=== PATIENT | female | born 1995 | race Caucasian/White ===

== ENCOUNTER 2020-05-28 20:34 | Emergency (ER) | payer OTHER ==
[~2020-05-28] VITALS: Ht 157.5 cm; Wt 125.2 kg
[2020-05-28 20:50] VITALS: BP 141/82
--- NOTE | 2020-05-28 20:55 | NUR ---
pt ambualted to bed 9. ua provided and in utility room.
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
--- NOTE | 2020-05-28 21:10 | NUR ---
Dr. Mcdonald examining patient.
[2020-05-28 21:35] VITALS: BP 124/80
--- NOTE | 2020-05-28 21:35 | NUR ---
Patient discharged with v/s stable. Written and verbal after care instructions given and explained. Patient verbalized understanding. Ambulatory with steady gait. All questions addressed prior to discharge. Advised to follow up with PMD.
== END 2020-05-28 21:35 | disposition home or self-care (01) ==
LOC: MED 20:34
DX: T78.1XXA Other adverse food reactions, not elsewhere classified, initial encounter (principal); I10 Essential (primary) hypertension; X58.XXXA Exposure to other specified factors, initial encounter
CPT/HCPCS: 81002; 81025; 99283; Q0163

== ENCOUNTER 2020-06-15 16:47 | Emergency (ER) | payer OTHER ==
[~2020-06-15] VITALS: Ht 162.6 cm; Wt 103.6 kg
[2020-06-15 16:59] VITALS: BP 130/94
--- NOTE | 2020-06-15 17:10 | NUR ---
PT AMBULATED TO ROOM 7.
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
--- NOTE | 2020-06-15 17:18 | NUR ---
DR ROSADO AT BEDSIDE EVALUATING PT.
--- NOTE | 2020-06-15 17:23 | NUR ---
SAIDA GRANT AT BEDSIDE DOIN EKG.
--- NOTE | 2020-06-15 17:34 | NUR ---
XRAY AT BEDSIDE.
--- NOTE | 2020-06-15 18:23 | NUR ---
DR ROSADO AT BEDSIDE REEVALUATING PT.
[2020-06-15] MEDS ORDERED: LORazepam 0.5 MG TAB PO ONE (18:35)
--- NOTE | 2020-06-15 18:39 | NUR ---
excuse from work given.
[2020-06-15 18:41] VITALS: BP 130/94
--- NOTE | 2020-06-15 18:42 | NUR ---
Patient discharged with v/s stable. Written and verbal after care instructions given and explained regarding costochondritis, anxiety and panic attack. Patient alert, oriented and verbalized understanding of instructions. Ambulatory with steady gait. All questions addressed prior to discharge. ID band removed. Patient advised to follow up with PMD. Rx of ativan and motrin given. Patient educated on indication of medication including possible reaction and side effects. Opportunity to ask questions provided and answered.
== END 2020-06-15 18:42 | disposition home or self-care (01) ==
LOC: MED 16:47
DX: M94.0 Chondrocostal junction syndrome [Tietze] (principal); F41.9 Anxiety disorder, unspecified; R03.0 Elevated blood-pressure reading, without diagnosis of hypertension; Z98.890 Other specified postprocedural states
CPT/HCPCS: 71045; 81002; 81025; 93005; 99283; Q0092

== ENCOUNTER 2020-12-07 14:01 | Emergency (ER) | payer OTHER ==
[~2020-12-07] VITALS: Ht 162.6 cm; Wt 105.7 kg
[2020-12-07 14:12] VITALS: BP 121/65
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
--- NOTE | 2020-12-07 14:42 | NUR ---
LAB AT BEDSIDE
[2020-12-07 14:49] LABS: BASOPHILS % (AUTO) 0.7 % (0.0-2.0); EOSINOPHILS # (AUTO) 0.1 K/uL (0-0.4); HEMATOCRIT 35.7 % (36-48); HEMOGLOBIN 12.1 g/dL (12.0-16.0); LYMPHOCYTES # (AUTO) 1.6 K/uL (2.5-16.5); LYMPHOCYTES % (AUTO) 36.8 % (20.5-51.1); MEAN CORPUSCULAR HEMOGLOBIN 31 pg (27-31); MEAN CORPUSCULAR HGB CONC 34 g/dL (33-37); MEAN CORPUSCULAR VOLUME 91.2 fL (80-94); MONOCYTES # (AUTO) 0.3 K/uL (0.8-1.0); MONOCYTES % (AUTO) 6.1 % (1.7-9.3); NEUTROPHILS # (AUTO) 2.4 K/uL (1.8-7.7); NEUTROPHILS % (AUTO) 54.4 % (42.2-75.2); PLATELET COUNT (AUTO) 272 K/uL (140-450); RED BLOOD CELL COUNT(AUTO) 3.91 MIL/uL (4.20-5.40); RED CELL DISTRIBUTION WIDTH 13.6 % (11.6-13.7); WHITE BLOOD COUNT (AUTO) 4.5 K/uL (4.8-10.8)
[2020-12-07 14:57] LABS: ANION GAP 11.1 (8-16); CARBON DIOXIDE 26.3 mmol/L (21-32); CREATININE 0.7 mg/dL (0.6-1.3); POTASSIUM 4.4 mmol/L (3.5-5.1)
--- NOTE | 2020-12-07 15:14 | NUR ---
Female Seat Cover Cutter accompanied female patient for Pelvic Exam.
--- NOTE | 2020-12-07 15:40 | NUR ---
US AT BEDSIDE
[2020-12-07] MEDS ORDERED: KETOROLAC 30 MG/ML VIAL IM ONE (16:30)
--- NOTE | 2020-12-07 16:59 | NUR ---
WINSTON Good is reevaluating the patient at bedside.
[2020-12-07] MEDS ORDERED: IBUP-2213 PO (17:05)
[2020-12-07 17:11] VITALS: BP 123/62
== END 2020-12-07 17:11 | disposition home or self-care (01) ==
LOC: MED 14:01
DX: N83.292 Other ovarian cyst, left side (principal); N83.291 Other ovarian cyst, right side; D25.9 Leiomyoma of uterus, unspecified; Z79.899 Other long term (current) drug therapy
CPT/HCPCS: 36415; 76830; 80048; 81002; 81025; 84702; 85025; 96372; 99284; J1885

== ENCOUNTER 2021-03-16 09:02 | Emergency (ER) | payer OTHER ==
[~2021-03-16] VITALS: Ht 162.6 cm; Wt 95.3 kg
[~2021-03-16 09:02] MED LIST: IBUP-2213 PO
[2021-03-16 09:09] VITALS: BP 107/58
[2021-03-16] MEDS ORDERED: NAPR-54 PO (09:44)
[2021-03-16] MEDS ORDERED: LOSA25TA32 PO (09:45)
[2021-03-16 10:42] VITALS: BP 112/62
== END 2021-03-16 10:42 | disposition home or self-care (01) ==
LOC: MED 09:02
DX: B34.9 Viral infection, unspecified (principal); I10 Essential (primary) hypertension; Z76.0 Encounter for issue of repeat prescription; Z20.822 Contact with and (suspected) exposure to COVID-19; Z79.899 Other long term (current) drug therapy; Z98.890 Other specified postprocedural states
CPT/HCPCS: 99283

== ENCOUNTER 2021-06-02 18:19 | Emergency (ER) | payer OTHER ==
[~2021-06-02 18:19] MED LIST changes: +LOSA25TA32 PO; +NAPR-54 PO
== END 2021-06-02 19:20 | disposition left against medical advice (07) ==
LOC: MED 18:19
DX: Z53.21 Procedure and treatment not carried out due to patient leaving prior to being seen by health care provider (principal)

== ENCOUNTER 2021-09-06 09:30 | Emergency (ER) | payer OTHER ==
[~2021-09-06] VITALS: Ht 162.6 cm; Wt 107.5 kg
[2021-09-06 09:34] VITALS: BP 137/85
--- NOTE | 2021-09-06 09:40 | NUR ---
PT AMBULATED TO BED 8
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
--- NOTE | 2021-09-06 10:03 | NUR ---
DR. BYRNE AT PT BEDSIDE FOR FURTHER EVALUATION.
[2021-09-06 10:25] VITALS: BP 130/75
== END 2021-09-06 10:25 | disposition home or self-care (01) ==
LOC: MED 09:30
DX: R60.9 Edema, unspecified (principal); R10.2 Pelvic and perineal pain; I10 Essential (primary) hypertension; Z79.899 Other long term (current) drug therapy; Z98.890 Other specified postprocedural states
CPT/HCPCS: 81002; 81025; 99283

== ENCOUNTER 2021-09-20 13:28 | Emergency (ER) | payer OTHER ==
[~2021-09-20] VITALS: Ht 162.6 cm; Wt 104.3 kg
[2021-09-20 14:01] VITALS: BP 130/76
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
[2021-09-20] MEDS ORDERED: DICYCLOMINE HCL LIQUID 20 MG, ALUMINUM HYD/MAG/SIMETHICONE 30 ML, LIDOCAINE VISCOUS 2% ... PO ONE ×3 (14:25)
[2021-09-20] MEDS ORDERED: ONDANSETRON 4 MG ODT PO ONE (14:25)
[2021-09-20] MEDS ORDERED: ONDA8TAB87 PO (14:58)
[2021-09-20] MEDS ORDERED: OMEP40EC24 PO (14:58)
[2021-09-20] MEDS ORDERED: DICYCLOMINE HCL LIQUID 10 MG/5 ML UDC ONE (15:17)
[2021-09-20] MEDS ORDERED: ALUMINUM HYD/MAG/SIMETHICONE 30 ML UDC ONE (15:17)
[2021-09-20 15:27] VITALS: BP 130/76
--- NOTE | 2021-09-20 15:27 | NUR ---
Patient discharged with v/s stable. Written and verbal after care instructions given and explained. Patient alert, oriented and verbalized understanding of instructions. Ambulatory with steady gait. All questions addressed prior to discharge. ID band removed. Patient advised to follow up with PMD. Rx of PRILOSAC, ZOFRAN given. Patient educated on indication of medication including possible reaction and side effects. Opportunity to ask questions provided and answered.
== END 2021-09-20 15:27 | disposition home or self-care (01) ==
LOC: MED 13:28
DX: R10.13 Epigastric pain (principal); R11.2 Nausea with vomiting, unspecified; I10 Essential (primary) hypertension; Z79.899 Other long term (current) drug therapy; Z98.890 Other specified postprocedural states
CPT/HCPCS: 99283; Q0162

== ENCOUNTER 2022-04-23 18:50 | Emergency (ER) | payer OTHER ==
[~2022-04-23] VITALS: Ht 162.6 cm; Wt 105.7 kg
[~2022-04-23 18:50] MED LIST changes: +OMEP40EC24 PO; +ONDA8TAB87 PO
[2022-04-23 19:01] VITALS: BP 121/85
--- NOTE | 2022-04-23 19:03 | NUR ---
PT TO LOBBY.
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
--- NOTE | 2022-04-23 20:22 | NUR ---
PT AMBULATED TO BED 8
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
--- NOTE | 2022-04-23 20:40 | NUR ---
ERMD AT BEDSIDE
[2022-04-23] MEDS ORDERED: ACET-8386 PO (21:03)
[2022-04-23] MEDS ORDERED: IBUP-2213 PO (21:03)
[2022-04-23] MEDS: KETOROLAC 60 MG/2 ML VIAL IM ONE (21:22)
[2022-04-23 21:33] VITALS: BP 120/82
--- NOTE | 2022-04-23 21:33 | NUR ---
Patient discharged with v/s stable. Written and verbal after care instructions given and explained. Patient alert, oriented and verbalized understanding of instructions. Ambulatory with steady gait. All questions addressed prior to discharge. ID band removed. Patient advised to follow up with PMD. Rx of norco and ibruprofen given. Opportunity to ask questions provided and answered.
--- NOTE | 2022-04-23 21:40 | NUR ---
The patient's care was reviewed and supervised by Jessica Granados RN.
== END 2022-04-23 21:33 | disposition home or self-care (01) ==
LOC: MED 18:50
DX: S13.4XXA Sprain of ligaments of cervical spine, initial encounter (principal); I10 Essential (primary) hypertension; V49.88XA Car occupant (driver) (passenger) injured in other specified transport accidents, initial encounter; Y93.89 Activity, other specified; Y92.89 Other specified places as the place of occurrence of the external cause; Y99.8 Other external cause status
CPT/HCPCS: 81002; 81025; 96372; 99283; J1885

== ENCOUNTER 2022-07-29 12:11 | Emergency (ER) | payer OTHER ==
[~2022-07-29] VITALS: Ht 162.6 cm; Wt 102.5 kg
[~2022-07-29 12:11] MED LIST changes: +ACET-8386 PO
[2022-07-29 12:22] VITALS: BP 128/76
--- NOTE | 2022-07-29 12:25 | NUR ---
PT TO BED 11
[2022-07-29] MEDS ORDERED: ACETAMINOPHEN EXTRA STRENGTH 500 MG TAB PO ONE (14:15)
[2022-07-29] MEDS ORDERED: PRED20TA5 PO (14:59)
[2022-07-29 15:11] VITALS: BP 124/70
== END 2022-07-29 15:11 | disposition home or self-care (01) ==
LOC: MED 12:11
DX: R05.9 Cough, unspecified (principal); M79.10 Myalgia, unspecified site; M54.6 Pain in thoracic spine; M79.651 Pain in right thigh; I10 Essential (primary) hypertension; Z79.899 Other long term (current) drug therapy; Z98.890 Other specified postprocedural states; Z98.84 Bariatric surgery status
CPT/HCPCS: 71045; 99283; Q0092

== ENCOUNTER 2022-12-31 17:28 | Emergency (ER) | payer OTHER ==
[~2022-12-31 17:28] MED LIST changes: -ACET-8386 PO; +ACET-8905 PO; +PRED20TA5 PO
--- NOTE | 2022-12-31 17:45 | NUR ---
PT LEFT WITHOUT BEING SEEN. PT REQUESTED TO LEAVE SHE FEELS LIKE SHE DOES NOT HAVE AN EMERGENCY. ADVISED THE PATIENT THAT SHE IS MORE THAN WELCOME TO BE EVALUATED REGARDLESS. PT INSISTED ON LEAVING. LEFT WITHOUT BEING SEEN
== END 2022-12-31 17:45 | disposition left against medical advice (07) ==
LOC: MED 17:28
DX: R03.1 Nonspecific low blood-pressure reading (principal); Z53.21 Procedure and treatment not carried out due to patient leaving prior to being seen by health care provider

== ENCOUNTER 2023-01-14 00:42 | Emergency (ER) | payer OTHER ==
--- NOTE | 2023-01-14 01:07 | NUR ---
LWBS PER ADMITING
== END 2023-01-14 01:07 | disposition left against medical advice (07) ==
LOC: MED 00:42
DX: R10.9 Unspecified abdominal pain (principal); Z53.21 Procedure and treatment not carried out due to patient leaving prior to being seen by health care provider

== ENCOUNTER 2023-05-22 21:29 | Emergency (ER) | payer OTHER ==
[~2023-05-22] VITALS: Ht 162.6 cm; Wt 88.5 kg
[2023-05-22 21:33] VITALS: BP 142/82; PULSE 110; RESP 24; TEMP 97.8; O2SAT 99
[2023-05-22] MEDS ORDERED: HYDROmorphone PFS 2 MG/ML SYR IVP ONE (22:55)
[2023-05-22] MEDS ORDERED: NACL 0.9% 1,000 ML IV ONE (22:55)
[2023-05-22] MEDS: ACETAMINOPHEN EXTRA STRENGTH 500 MG TAB PO ONE ×2 (23:10→23:20)
[2023-05-22 23:18] LABS: BASOPHILS % (AUTO) 0.6 % (0.0-2.0); EOSINOPHILS # (AUTO) 0.1 K/uL (0-0.4); EOSINOPHILS % (AUTO) 0.9 % (0.0-4.0); HEMATOCRIT 33.9 % (36-48); HEMOGLOBIN 11.5 g/dL (12.0-16.0); LYMPHOCYTES # (AUTO) 1.6 K/uL (2.5-16.5); LYMPHOCYTES % (AUTO) 19.9 % (20.5-51.1); MEAN CORPUSCULAR HEMOGLOBIN 32 pg (27-31); MEAN CORPUSCULAR HGB CONC 34 g/dL (33-37); MEAN CORPUSCULAR VOLUME 92.9 fL (80-94); MONOCYTES # (AUTO) 0.8 K/uL (0.8-1.0); MONOCYTES % (AUTO) 9.6 % (1.7-9.3); NEUTROPHILS # (AUTO) 5.6 K/uL (1.8-7.7); PLATELET COUNT (AUTO) 240 K/uL (140-450); RED BLOOD CELL COUNT(AUTO) 3.65 MIL/uL (4.20-5.40); RED CELL DISTRIBUTION WIDTH 12.5 % (11.6-13.7); WHITE BLOOD COUNT (AUTO) 8.1 K/uL (4.8-10.8)
[2023-05-22 23:29] LABS: ANION GAP 13.7 (8-16); CALCIUM 8.7 mg/dL (8.5-10.1); CARBON DIOXIDE 26.5 mmol/L (21-32); CREATININE 0.7 mg/dL (0.6-1.3); POTASSIUM 3.2 mmol/L (3.5-5.1)
[2023-05-23] MEDS ORDERED: ONDANSETRON 4 MG ODT ONE (00:09)
[2023-05-23 00:24] VITALS: O2SAT 100
[2023-05-23] MEDS ORDERED: HYDROmorphone PFS 2 MG/ML SYR IVP ONE (00:45)
[2023-05-23] MEDS ORDERED: LORazepam 0.5 MG TAB PO ONE (01:05)
[2023-05-23 02:43] VITALS: O2SAT 100
[2023-05-23 04:51] VITALS: BP 105/65; PULSE 98; RESP 16; O2SAT 99
== END 2023-05-23 04:51 | disposition home or self-care (01) ==
LOC: MED 21:29
DX: R00.0 Tachycardia, unspecified (principal); F41.9 Anxiety disorder, unspecified; G89.18 Other acute postprocedural pain; I10 Essential (primary) hypertension; Z98.890 Other specified postprocedural states; Z79.899 Other long term (current) drug therapy
CPT/HCPCS: 36415; 71275; 80048; 85025; 85379; 93005; 96361; 96374; 96375; 99285; J1170; Q0162; Q9967

== ENCOUNTER 2024-01-11 12:21 | Emergency (ER) | payer OTHER ==
[2024-01-12] MEDS ORDERED: MIRABULK PO (17:17)
[2024-01-12] MEDS ORDERED: MAGN296S70 PO (17:17)
[2024-01-12] MEDS ORDERED: ONDA-188 SL (17:17)
== END 2024-01-11 14:31 | disposition left against medical advice (07) ==
LOC: MED 12:21
DX: Z00.8 Encounter for other general examination (principal); Z53.21 Procedure and treatment not carried out due to patient leaving prior to being seen by health care provider

== ENCOUNTER 2024-01-12 13:11 | Emergency (ER) | payer OTHER ==
[~2024-01-12] VITALS: Ht 162.6 cm; Wt 98.4 kg
[2024-01-12 13:38] VITALS: BP 112/75; PULSE 65; RESP 17; TEMP 98.3; O2SAT 99
[2024-01-12 16:10] VITALS: O2SAT 99
[2024-01-12] MEDS ORDERED: ONDA-188 SL (17:17)
[2024-01-12] MEDS ORDERED: MAGN296S70 PO (17:17)
[2024-01-12] MEDS ORDERED: MIRABULK PO (17:17)
== END 2024-01-12 17:33 | disposition home or self-care (01) ==
LOC: MED 13:11
DX: K59.00 Constipation, unspecified (principal); R10.11 Right upper quadrant pain; R10.13 Epigastric pain; Z79.899 Other long term (current) drug therapy
CPT/HCPCS: 74022; 81025; 99283